=== PATIENT | male | born 1980 | race American Indian/Alaskan Native ===

== ENCOUNTER 2016-08-12 10:22 | Inpatient (IN) | payer BC ==
[2016-08-12] MEDS ORDERED: TYLENOL ONE (11:38)
[2016-08-12] MEDS ORDERED: TYLENOL PO ONE (11:44)
[2016-08-12] MEDS ORDERED: NACL 0.9% 1000 ML 1,000 ML IV ONE ×2 (11:53→13:03)
[2016-08-12] MEDS ORDERED: ROBITUSSIN ONE (12:01)
--- NOTE | 2016-08-12 12:24 | Emergency Department Report ---
ED General Adult HPI - General Chief complaint: Fever Stated complaint: COLD SYMPTOMS Time Seen by Provider: 08/12/16 11:45 Source: patient, family Mode of arrival: Wheelchair Limitations: No Limitations - History of Present Illness Initial comments: PT c/o of "not feeling well" PT states he received influenza vaccine in FEB and PNA vaccine in May. PT states that since May, he has had intermittent cough. 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 PT states that yesterday, he felt worse, had hot and cold flashes and he had to have his pick him up from work. PT states this morning, while in the shower, he got dizzy and slid to the ground. PT denies chi, syncope, or collapse. PT states he had to have his bath him. Pt's reports that pt has been shaking. MD Complaint: "not feeling well" Onset/Timin -: Gradual, days(s) Location: head, chest, back, abdomen Severity scale (0 -10): 10 Quality: aching Consistency: constant Improves with: medication (Robitussion last night ) Worsens with: movement, other (shower ) Associated Symptoms: chest pain, cough, fever/chills, headaches, loss of appetite, malaise, weakness. denies: nausea/vomiting, syncope Treatments Prior to Arrival: other (Robittusin last night ) - Related Data Previous Rx's Medication Instructions Recorded Last Taken Type Cyclobenzaprine HCl [FLEXERIL] 10 mg PO Q4-6H PRN #12 tablet 05/05/13 Unknown Rx Hydrocodone Bit/Acetaminophen 1 each PO Q4-6H PRN #12 tablet 05/05/13 Unknown Rx [Lortab 5-500 Tablet] Ibuprofen [Motrin] 800 mg PO TID PRN #30 tablet 05/05/13 Unknown Rx Allergies Allergy/AdvReac Type Severity Reaction Status Date / Time No Known Allergies Allergy Verified 08/12/16 11:13 ED Review of Systems ROS: Stated complaint: COLD SYMPTOMS Other details as noted in HPI Comment: All other systems reviewed and negative Constitutional: chills, fever, malaise, weakness (generalized ) ENT: throat pain, congestion Respiratory: cough, shortness of breath, wheezing Cardiovascular: chest pain. denies: edema Gastrointestinal: abdominal pain. denies: nausea, vomiting Genitourinary: dysuria, hematuria (possible, darker urine) Musculoskeletal: back pain Neurological: headache, weakness (generalized ) ED Past Medical Hx - Past Medical History Previous Medical History?: Yes Hx Hypertension: Yes Hx Diabetes: Yes - Surgical History Past Surgical History?: No - Social History Smoking Status: Never Smoker Substance Use Type: None - Medications Home Medications: Home Medications Medication Instructions Recorded Confirmed Last Taken Type Cyclobenzaprine HCl [FLEXERIL] 10 mg PO Q4-6H PRN #12 tablet 05/05/13 Unknown Rx Hydrocodone Bit/Acetaminophen 1 each PO Q4-6H PRN #12 tablet 05/05/13 Unknown Rx [Lortab 5-500 Tablet] Ibuprofen [Motrin] 800 mg PO TID PRN #30 tablet 05/05/13 Unknown Rx ED Physical Exam - General Limitations: No Limitations General appearance: alert, in no apparent distress - Head Head exam: Present: atraumatic, normocephalic, normal inspection - Eye Eye exam: Present: normal appearance, PERRL. Absent: conjunctival injection - ENT ENT exam: Present: mucous membranes moist, other (cerumen jensen - obstructs visualization of TMs) - Expanded ENT Exam Expanded Mouth exam: Present: tongue normal. Absent: drooling, trismus Throat exam: Positive: normal inspection, other (clear post nasal drainage ). Negative: tonsillar exudate - Neck Neck exam: Present: normal inspection, full ROM. Absent: tenderness - Respiratory Respiratory exam: Present: other (diminished jensen - coughing during exam ). Absent: respiratory distress, wheezes, rhonchi - Cardiovascular Cardiovascular Exam: Present: normal rhythm, tachycardia - GI/Abdominal GI/Abdominal exam: Present: soft, normal bowel sounds. Absent: tenderness - Extremities Exam Extremities exam: Present: normal inspection, full ROM, normal capillary refill - Back Exam Back exam: Present: normal inspection, tenderness (to jensen lumbar paraspinal muscles ). Absent: CVA tenderness (R), CVA tenderness (L), vertebral tenderness - Neurological Exam Neurological exam: Present: alert, oriented X3 - Psychiatric Psychiatric exam: Present: normal affect, normal mood - Skin Skin exam: Present: warm, dry, intact ED Course Vital Signs 08/12/16 08/12/16 08/12/16 11:09 13:18 13:29 Temperature 101.1 F H Pulse Rate 119 H Pulse Rate [ 97 H 103 H Anterior Bilateral Throughout] Respiratory 16 Rate Respiratory 18 18 Rate [Anterior Bilateral Throughout] Blood Pressure 127/77 O2 Sat by Pulse 97 Oximetry - Reevaluation(s) Reevaluation #1: 08/12/16 12:28 PT's fever was treated by RN with Tylenol 975mg. PT aware of plan of care. Reevaluation #2: 08/12/16 12:58 PT aware of XR results. Reevaluation #3: 08/12/16 14:11 PT states he is feeling better. PT aware of plan to admit and agrees. Dr Baig aware of pt and agrees with plan of care. - Consultations Consultation #1: 08/12/16 14:42 Dr Bernal to admit. - Pulse Oximetry Interpretation Digit-Finger Initial Pulse Oximetry Readin Actions Taken: none ED Medical Decision Making - Lab Data Result diagrams: 08/12/16 12:38 08/12/16 12:38 - EKG Data -: EKG Interpreted by Me EKG shows normal: sinus rhythm Rate: tachycardia - Radiology Data Radiology results: report reviewed CXR:R middle lobe PNA Critical care attestation.: If time is entered above; I have spent that time in minutes in the direct care of this critically ill patient, excluding procedure time. ED Disposition Clinical Impression: Right middle lobe pneumonia Qualifiers: Pneumonia type: due to unspecified organism Qualified Code(s): J18.9 - Pneumonia, unspecified organism Disposition: OP ADMITTED IP TO THIS HOSP Is pt being admited?: Yes Does the pt Need Aspirin: No Condition: Stable Instructions: Bacterial Pneumonia (ED) Referrals: JENNIFER DOMINIQUE MD [Primary Care Provider] - 3-5 Days Time of Disposition: 14:42
[2016-08-12] MEDS ORDERED: ROBITUSSIN AC PO ONE (12:30)
--- NOTE | 2016-08-12 12:35 | XRay Report ---
PA and lateral chest: The pulmonary infiltrate in the right middle lobe. Lungs otherwise appear generally clear. The heart is normal in size and is no vascular congestion. No prior study for comparison. Impression: Right middle lobe pneumonia.
[2016-08-12 12:47] LABS: Basophils % (Auto) 0.2 % (0.0-1.8); Hemoglobin 11.1 gm/dl (11.8-15.2); Mean Corpuscular HGB Conc 33 % (32-34); Mean Corpuscular Hemoglobin 26 pg (28-32); Mean Corpuscular Volume 81 fl (84-94); Platelet Count 153 K/mm3 (140-440); Red Blood Count 4.19 M/mm3 (3.65-5.03); Red Cell Distribution Width 13.2 % (13.2-15.2); White Blood Count 19.4 K/mm3 (4.5-11.0)
[2016-08-12 12:59] LABS: Lipase 10 units/L (13-60)
[2016-08-12 13:04] LABS: Alanine Aminotransferase 12 units/L (7-56); Albumin 2.8 g/dL (3.9-5); Albumin/Globulin Ratio 0.9 %; Alkaline Phosphatase 94 units/L (35-129); Anion Gap 14 mmol/L; BUN/Creatinine Ratio 11.42; Blood Urea Nitrogen 8 mg/dL (9-20); Calcium 8.1 mg/dL (8.4-10.2); Carbon Dioxide 24 mmol/L (22-30); Chloride 100.2 mmol/L (98-107); Glucose 226 mg/dL (75-100); Potassium 3.5 mmol/L (3.6-5.0); Sodium 135 mmol/L (137-145)
[2016-08-12] MEDS ORDERED: DUONEB 0.5 MG-3 MG/3 ML SOLN IH ONE (13:05)
[2016-08-12 13:21] LABS: Bilirubin,Urine NEG (Negative); Blood,Urine NEG (Negative); Ketones,Urine 20 mg/dL (Negative); Leukocyte Esterase,Urine NEG (Negative); Mucus,Urine FEW /HPF; Nitrite,Urine NEG (Negative)
--- NOTE | 2016-08-12 13:43 | Admit Criteria Form ---
Admission Criteria Documentation: PNEUMONIA, COMMUNITY ACQUIRED Clinical Indications for Admission to Inpatient Care ( Place 'X' for any and all applicable criteria): Admission is indicated for ANY ONE of the following (1)(2)(3): [ ]I. Hypoxemia indicated by ANY ONE of the following: [ ]a) Oxygen saturation less than 90% while breathing room air [ ]b) PO2 less than 60 mm Hg (8.0 kPa) while breathing room air [ ]c) Chronic lung disease with significant deterioration from baseline oxygenation [X]II. Appropriate diagnostic testing and treatment unavailable in outpatient or recovery facility (eg,testing or infection control measures unavailable(10) [ ]III. Moderate-risk or high-risk category patients (Pneumonia Severity Index (PSI) class IV or V, or CURB-65 score of 3 or greater). [ ]IV. Outpatient treatment failure as indicated by ANY ONE of the following(9) : [ ]a) Failure to respond to antibiotic (eg, resistant organism) [ ]b) Clinically significant adverse effects from medication (eg, vomiting) [ ]c) Complications of pneumonia (eg, empyema, bacteremia) [ ]d) Significant worsening of comorbid cond necessitating inpatient care (eg, chronic heart failure) [ ]V. Intermediate-risk category patients (eg, PSI class III or CURB-65 score 2) who do not improve with initial therapy and observation. [ ]. Immunocompromised patients (eg, AIDS, chronic steroid use) at moderate or high risk based on clinical evaluation. [ ]VII. Complicated pleural effusions (eg, exudative, loculated) [ ]VIII.Hemodynamic instability [ ] IX. Altered mental status that is severe or persistent. [ ]X. Dehydration that is severe or persistent. [ ]XI. Bacteremia [ ]XII. Respiratory finding (eg. tachypnea) that do not respond to outpatient or observation care treatment Extended stay beyond goal length of stay may be needed for (20) [ ]a) Unclear diagnosis [ ]b) Pleural disease [ ]c) Severe pneumonia or treatment failure (25 [ ]d) Respiratory failure (anticipate invasive or noninvasive ventilatory support) [ ]e) Abnormal serum electrolytes (serum Na concentration less than 135 mEq/L (mmol/L) (32)(33) [ ]f) Clinically significant comorbid illness (eg, heart failure, atrial fibrillation with rapid heart rate, alcohol withdrawal, renal insufficiency)(34)(35) [ ]g) Comorbid acute exacerbation of COPD(36) [ ]h) Concomitant diagnosis of malignancy that may be associated with malnutrition, immunologic impairment, or bronchial obstruction. [ ]i) Concomitant altered mental status [ ]j) Culture-identified Gram-negative or antibiotic-resistant organism (eg, Pseudomonas, methicillin-resistant Staphylococcus aureus)(30) [ ]k) Healthcare-associated pneumonia The original [employer] content created by [employer] has been revised. The portions of the content which have been revised are identified through the use of italic text or in bold, and [facility] has neither reviewed nor approved the modified material. All other unmodified content is copyright [employer]. Please see references footnoted in the original [facility] edition 2016 Admission Criteria Met: Yes
[2016-08-12] MEDS ORDERED: LEVAQUIN 750MG/150ML 750 MG/150 ML BAG IV ONE (14:08)
[2016-08-12] MEDS ORDERED: ZOSYN/NS 4.5GM/100ML 4.5 GM/100 ML VIAL IV ONE (14:08)
[2016-08-12] MEDS ORDERED: DILAUDID IV PRN (15:38)
[2016-08-12] MEDS ORDERED: DULCOLAX PR PRN (15:38)
[2016-08-12] MEDS ORDERED: ZOFRAN IV PRN (15:38)
[2016-08-12] MEDS ORDERED: MILK OF MAGNESIA PO PRN (15:38)
[2016-08-12] MEDS ORDERED: TYLENOL PO PRN (15:38)
[2016-08-12] MEDS ORDERED: FLEXERIL PO PRN (15:41)
[2016-08-12] MEDS ORDERED: NON-FORMULARY (Hydrocodone Bit/Acetaminophen [Lortab 5-500 Tablet] 1 EACH) PO PRN (15:41)
[2016-08-12] MEDS ORDERED: NACL 0.45% 1000 ML 1,000 ML IV SCH (16:00)
[2016-08-12] MEDS ORDERED: NORCO 5/325 PO PRN (16:00)
[2016-08-12] MEDS: ZOSYN/NS 4.5GM/100ML 4.5 GM/100 ML VIAL IV SCH (16:58)
[2016-08-12] MEDS: MOTRIN PO PRN (21:01)
[2016-08-13] MEDS: ZOSYN/NS 4.5GM/100ML 4.5 GM/100 ML VIAL IV SCH ×3 (00:27→18:10)
[2016-08-13 08:06] LABS: Basophils % (Auto) 0.2 % (0.0-1.8); Eosinophils % (Auto) 0.9 % (0.0-4.3); Hematocrit 36.8 % (35.5-45.6); Mean Corpuscular HGB Conc 33 % (32-34); Mean Corpuscular Hemoglobin 26 pg (28-32); Mean Corpuscular Volume 81 fl (84-94); Platelet Count 155 K/mm3 (140-440); Red Blood Count 4.55 M/mm3 (3.65-5.03); Red Cell Distribution Width 13.7 % (13.2-15.2)
[2016-08-13 08:27] LABS: Alanine Aminotransferase 11 units/L (7-56); Albumin 2.7 g/dL (3.9-5); Albumin/Globulin Ratio 0.8 %; Alkaline Phosphatase 95 units/L (35-129); Anion Gap 14 mmol/L; Bilirubin,Total 0.7 mg/dL (0.1-1.2); Blood Urea Nitrogen 7 mg/dL (9-20); Calcium 8.1 mg/dL (8.4-10.2); Carbon Dioxide 25 mmol/L (22-30); Glucose 186 mg/dL (75-100); Potassium 3.4 mmol/L (3.6-5.0); Sodium 137 mmol/L (137-145); Total Protein 6.2 g/dL (6.3-8.2)
[2016-08-13] MEDS: LOVENOX SUB-Q SCH (09:58)
--- NOTE | 2016-08-13 11:24 | Progress Note ---
Assessment and Plan Assessment and plan: 1. Sepsis. Present on admission. Patient meets criteria with tachycardia, fever, leukocytosis and diagnosis of pneumonia. Patient will be placed on the sepsis pathway continued on IV antibiotics. Continue to follow blood cultures and trend lactic acid levels. 2. Community-acquired pneumonia. Continue antibiotics and follow-up cultures and chest x-ray. 3. Hypokalemia. Replete potassium. 4. Hypertension. Resume antihypertensive medications. History Interval history: 36-year-old male admitted with diagnosis of right lower lobe pneumonia. No new issues overnight. Patient complains of cough. Hospitalist Physical - Constitutional Vitals: Temp Pulse Resp BP Pulse Ox 97.9 F 84 20 120/72 96 08/13/16 08:25 08/13/16 08:25 08/13/16 08:25 08/13/16 08:25 08/13/16 08:25 General appearance: Present: no acute distress, well-nourished - EENT Eyes: Present: PERRL, EOM intact ENT: hearing intact, clear oral mucosa, dentition normal - Neck Neck: Present: supple, normal ROM - Respiratory Respiratory effort: normal Respiratory: right: rhonchi, bilateral: diminished - Cardiovascular Rhythm: regular Heart Sounds: Present: S1 & S2. Absent: gallop, rub - Extremities Extremities: no ischemia, No edema, Full ROM - Abdominal General gastrointestinal: soft, non-tender, non-distended, normal bowel sounds - Integumentary Integumentary: Present: clear, warm, dry - Neurologic Neurologic: CNII-XII intact, moves all extremities Results - Labs CBC & Chem 7: 08/13/16 07:37 08/13/16 07:37 Labs: Laboratory Last Values WBC 15.0 K/mm3 (4.5-11.0) H 08/13/16 07:37 RBC 4.55 M/mm3 (3.65-5.03) 08/13/16 07:37 Hgb 12.0 gm/dl (11.8-15.2) 08/13/16 07:37 Hct 36.8 % (35.5-45.6) 08/13/16 07:37 MCV 81 fl (84-94) L 08/13/16 07:37 MCH 26 pg (28-32) L 08/13/16 07:37 MCHC 33 % (32-34) 08/13/16 07:37 RDW 13.7 % (13.2-15.2) 08/13/16 07:37 Plt Count 155 K/mm3 (140-440) 08/13/16 07:37 Lymph % (Auto) 11.0 % (13.4-35.0) L 08/13/16 07:37 [place] % (Auto) 8.3 % (0.0-7.3) H 08/13/16 07:37 Eos % (Auto) 0.9 % (0.0-4.3) 08/13/16 07:37 Baso % (Auto) 0.2 % (0.0-1.8) 08/13/16 07:37 Lymph # 1.7 K/mm3 (1.2-5.4) 08/13/16 07:37 [place] # 1.2 K/mm3 (0.0-0.8) H 08/13/16 07:37 Eos # 0.1 K/mm3 (0.0-0.4) 08/13/16 07:37 Baso # 0.0 K/mm3 (0.0-0.1) 08/13/16 07:37 Seg Neutrophils % 79.6 % (40.0-70.0) H 08/13/16 07:37 Seg Neutrophils # 11.9 K/mm3 (1.8-7.7) H 08/13/16 07:37 Sodium 137 mmol/L (137-145) 08/13/16 07:37 Potassium 3.4 mmol/L (3.6-5.0) L 08/13/16 07:37 Chloride 101.0 mmol/L (98-107) 08/13/16 07:37 Carbon Dioxide 25 mmol/L (22-30) 08/13/16 07:37 Anion Gap 14 mmol/L 08/13/16 07:37 BUN 7 mg/dL (9-20) L 08/13/16 07:37 Creatinine 0.7 mg/dL (0.8-1.5) L 08/13/16 07:37 Estimated GFR > 60 ml/min 08/13/16 07:37 BUN/Creatinine Ratio 10.00 % 08/13/16 07:37 Glucose 186 mg/dL (75-100) H 08/13/16 07:37 POC Glucose 193 (70-105) H 08/13/16 06:48 Hemoglobin A1c 11.0 % (4-6) H 08/12/16 12:38 Lactic Acid 1.5 mmol/L (0.7-2.0) 08/12/16 13:31 Calcium 8.1 mg/dL (8.4-10.2) L 08/13/16 07:37 Total Bilirubin 0.7 mg/dL (0.1-1.2) 08/13/16 07:37 AST 12 units/L (5-40) 08/13/16 07:37 ALT 11 units/L (7-56) 08/13/16 07:37 Alkaline Phosphatase 95 units/L (35-129) 08/13/16 07:37 Troponin T < 0.010 ng/mL (0.00-0.029) 08/12/16 12:38 Total Protein 6.2 g/dL (6.3-8.2) L 08/13/16 07:37 Albumin 2.7 g/dL (3.9-5) L 08/13/16 07:37 Albumin/Globulin Ratio 0.8 % 08/13/16 07:37 Lipase 10 units/L (13-60) L 08/12/16 12:38 Urine Color Yellow (Yellow) 08/12/16 13:00 Urine Turbidity Clear (Clear) 08/12/16 13:00 Urine pH 7.0 (5.0-7.0) 08/12/16 13:00 Ur Specific [place] 1.021 (1.003-1.030) 08/12/16 13:00 Urine Protein 100 mg/dl mg/dL (Negative) 08/12/16 13:00 Urine Glucose (UA) 150 mg/dL (Negative) 08/12/16 13:00 Urine Ketones 20 mg/dL (Negative) 08/12/16 13:00 Urine Blood Neg (Negative) 08/12/16 13:00 Urine Nitrite Neg (Negative) 08/12/16 13:00 Urine Bilirubin Neg (Negative) 08/12/16 13:00 Urine Urobilinogen 2.0 mg/dL (<2.0) 08/12/16 13:00 Ur Leukocyte Esterase Neg (Negative) 08/12/16 13:00 Urine WBC (Auto) 9.0 /HPF (0.0-6.0) H 08/12/16 13:00 Urine RBC (Auto) 4.0 /HPF (0.0-6.0) 08/12/16 13:00 Urine Mucus Few /HPF 08/12/16 13:00
--- NOTE | 2016-08-13 15:42 | Event Note ---
Date: 08/12/16 See H/p in reports [facility] Pneumonia
[2016-08-13] MEDS ORDERED: EXENATIDE MICROSPHERES 2 MG SQ SCH (16:00)
--- NOTE | 2016-08-13 18:59 | History and Physical Report ---
CHIEF COMPLAINT: Fever and chills for 2 days. HISTORY OF PRESENT ILLNESS: A 36-year-old -[place] male, works for [employer], comes in for fever, chills and cough of 2 days' duration. The patient has been having intermittent cough, which is nonproductive. Also, right-sided chest pain on deep inspiration. He felt dizzy today. No syncope, no collapse. Generalized body aches present. The patient had pneumonia vaccination and flu vaccine in May. Pain in the right infra-axillary region is about 5 on a scale of 1-10, more on deep inspiration. CURRENT MEDICATIONS: [place] 5/325 q.4 p.r.n. and Flexeril 10 mg q.6 p.r.n. ALLERGIES: None. PAST MEDICAL HISTORY: Significant for hypertension and diabetes. PAST SURGICAL HISTORY: None. SOCIAL HISTORY: Does not smoke. No alcohol, no recreational drugs. REVIEW OF SYSTEMS: CONSTITUTIONAL: Fever present. Body aches present. No weight loss, no weight gain. HEENT: No sore throat, no post nasal drip. No tonsillar exudate. NECK: Supple. No neck pain. CARDIOVASCULAR: No chest pain, no palpitations, except the right-sided chest pain. RESPIRATORY: Right-sided chest pain on deep inspiration present. Dry cough present. Fever present. No sputum. GASTROINTESTINAL: No abdominal pain, no nausea, no vomiting, no diarrhea. No constipation. GENITOURINARY: No dysuria, no flank pain. MUSCULOSKELETAL: Bodyaches all over. CENTRAL NERVOUS SYSTEM: No syncope, no seizures. SKIN: No rashes. PSYCHIATRIC: No depression. No anxiety. HEMATOLOGIC AND LYMPHATIC: No bruising or bleeding. A 14-point review of systems done essentially negative other than fever and chills and right calf and right-sided infra-axillary pain. PHYSICAL EXAMINATION: GENERAL: On examination, young male, cooperative during examination. VITAL SIGNS: Temperature 101.5, pulse is 119, respirations 16, and blood pressure 127/77. HEENT: Unremarkable. Pupils are equal and reactive. Posterior pharynx is normal. NECK: Supple, no lymphadenopathy, no thyromegaly. LUNGS: Scattered rales in the right infrascapular and infra-axillary region. Good air entry. CARDIOVASCULAR: S1, S2 heard. No gallop, no murmur, no rub. Apical impulse in left fifth intercostal space and midclavicular line. ABDOMEN: Soft and benign. No hepatosplenomegaly. No guarding, no rigidity. Hernial orifices are normal. EXTREMITIES: Good pedal pulses. No pedal edema. CENTRAL NERVOUS SYSTEM: Alert and oriented x 4, nonfocal exam. LABORATORY DATA: White count is 19,400, H and H are 11.1 and 34.0, and platelet count is 153,000. Sodium is 135, potassium is 3.5, BUN and creatinine are 8 and 0.7, glucose is 226, chloride is 100, bicarbonate is 24. Chest x-ray shows right lower lobe pneumonia. No significant infiltrate present. ASSESSMENT AND PLAN: 1. Right lower lobe pneumonia. The patient was started on IV Levaquin, which was changed to IV Zosyn 4.5 because of ____ and because of the patient's exposure to many halfway and mesh , stopped the Levaquin; also IV fluids. 2. ____. The patient on Bydureon, continue the Bydureon. The patient can take his own medication, also Accu-Chek a.c. and at bedtime and coverage and check hemoglobin A1c. In the meantime, continue Bydureon and metformin. 3. Hypertension. Continue losartan 50 mg daily. 4. Deep venous thrombosis prophylaxis, Lovenox 40 units subq daily. PROGNOSIS: Fair. Probable discharge in 2 to 3 days on oral antibiotics. JOB# [id number] VSM/NTS
[2016-08-14] MEDS: ZOSYN/NS 4.5GM/100ML 4.5 GM/100 ML VIAL IV SCH ×3 (04:16→20:38)
[2016-08-14 06:00] LABS: Basophils % (Auto) 0.2 % (0.0-1.8); Eosinophils % (Auto) 1.9 % (0.0-4.3); Hematocrit 35.8 % (35.5-45.6); Hemoglobin 11.8 gm/dl (11.8-15.2); Mean Corpuscular HGB Conc 33 % (32-34); Mean Corpuscular Hemoglobin 27 pg (28-32); Mean Corpuscular Volume 81 fl (84-94); Platelet Count 179 K/mm3 (140-440); Red Blood Count 4.44 M/mm3 (3.65-5.03); Red Cell Distribution Width 13.6 % (13.2-15.2); White Blood Count 9.5 K/mm3 (4.5-11.0)
[2016-08-14 06:18] LABS: Anion Gap 15 mmol/L; Blood Urea Nitrogen 6 mg/dL (9-20); Calcium 8.2 mg/dL (8.4-10.2); Carbon Dioxide 25 mmol/L (22-30); Chloride 99.9 mmol/L (98-107); Glucose 236 mg/dL (75-100); Potassium 3.5 mmol/L (3.6-5.0); Sodium 136 mmol/L (137-145)
--- NOTE | 2016-08-14 10:16 | Progress Note ---
Assessment and Plan Assessment and plan: 1. Sepsis. Present on admission. Continue on IV antibiotics. Continue to follow blood cultures and trend lactic acid levels. 2. Community-acquired pneumonia. Continue antibiotics and follow-up cultures and chest x-ray. 3. Hypokalemia. Replete potassium as needed. 4. Hypertension. Resume antihypertensive medications. History Interval history: 36-year-old male admitted with diagnosis of right lower lobe pneumonia. No new issues overnight. Patient still complains of cough. Hospitalist Physical - Constitutional Vitals: Temp Pulse Resp BP Pulse Ox 98.0 F 82 18 134/85 97 08/14/16 08:10 08/14/16 08:10 08/14/16 08:10 08/14/16 08:10 08/14/16 08:10 General appearance: Present: no acute distress, well-nourished - EENT Eyes: Present: PERRL, EOM intact ENT: hearing intact, clear oral mucosa, dentition normal - Neck Neck: Present: supple, normal ROM - Respiratory Respiratory effort: normal Respiratory: bilateral: diminished, rhonchi - Cardiovascular Rhythm: regular Heart Sounds: Present: S1 & S2. Absent: gallop, rub - Extremities Extremities: no ischemia, No edema, Full ROM - Abdominal General gastrointestinal: soft, non-tender, non-distended, normal bowel sounds - Integumentary Integumentary: Present: clear, warm, dry - Neurologic Neurologic: CNII-XII intact, moves all extremities Results - Labs CBC & Chem 7: 08/14/16 05:11 08/14/16 05:11 Labs: Laboratory Last Values WBC 9.5 K/mm3 (4.5-11.0) 08/14/16 05:11 RBC 4.44 M/mm3 (3.65-5.03) 08/14/16 05:11 Hgb 11.8 gm/dl (11.8-15.2) 08/14/16 05:11 Hct 35.8 % (35.5-45.6) 08/14/16 05:11 MCV 81 fl (84-94) L 08/14/16 05:11 MCH 27 pg (28-32) L 08/14/16 05:11 MCHC 33 % (32-34) 08/14/16 05:11 RDW 13.6 % (13.2-15.2) 08/14/16 05:11 Plt Count 179 K/mm3 (140-440) 08/14/16 05:11 Lymph % (Auto) 21.5 % (13.4-35.0) 08/14/16 05:11 [place] % (Auto) 12.7 % (0.0-7.3) H 08/14/16 05:11 Eos % (Auto) 1.9 % (0.0-4.3) 08/14/16 05:11 Baso % (Auto) 0.2 % (0.0-1.8) 08/14/16 05:11 Lymph # 2.0 K/mm3 (1.2-5.4) 08/14/16 05:11 [place] # 1.2 K/mm3 (0.0-0.8) H 08/14/16 05:11 Eos # 0.2 K/mm3 (0.0-0.4) 08/14/16 05:11 Baso # 0.0 K/mm3 (0.0-0.1) 08/14/16 05:11 Seg Neutrophils % 63.7 % (40.0-70.0) 08/14/16 05:11 Seg Neutrophils # 6.0 K/mm3 (1.8-7.7) 08/14/16 05:11 Sodium 136 mmol/L (137-145) L 08/14/16 05:11 Potassium 3.5 mmol/L (3.6-5.0) L 08/14/16 05:11 Chloride 99.9 mmol/L (98-107) 08/14/16 05:11 Carbon Dioxide 25 mmol/L (22-30) 08/14/16 05:11 Anion Gap 15 mmol/L 08/14/16 05:11 BUN 6 mg/dL (9-20) L 08/14/16 05:11 Creatinine 0.8 mg/dL (0.8-1.5) 08/14/16 05:11 Estimated GFR > 60 ml/min 08/14/16 05:11 BUN/Creatinine Ratio 7.50 % 08/14/16 05:11 Glucose 236 mg/dL (75-100) H 08/14/16 05:11 POC Glucose 193 (70-105) H 08/13/16 06:48 Hemoglobin A1c 11.0 % (4-6) H 08/12/16 12:38 Lactic Acid 1.6 mmol/L (0.7-2.0) 08/13/16 14:41 Calcium 8.2 mg/dL (8.4-10.2) L 08/14/16 05:11 Total Bilirubin 0.7 mg/dL (0.1-1.2) 08/13/16 07:37 AST 12 units/L (5-40) 08/13/16 07:37 ALT 11 units/L (7-56) 08/13/16 07:37 Alkaline Phosphatase 95 units/L (35-129) 08/13/16 07:37 Troponin T < 0.010 ng/mL (0.00-0.029) 08/12/16 12:38 Total Protein 6.2 g/dL (6.3-8.2) L 08/13/16 07:37 Albumin 2.7 g/dL (3.9-5) L 08/13/16 07:37 Albumin/Globulin Ratio 0.8 % 08/13/16 07:37 Lipase 10 units/L (13-60) L 08/12/16 12:38 Urine Color Yellow (Yellow) 08/12/16 13:00 Urine Turbidity Clear (Clear) 08/12/16 13:00 Urine pH 7.0 (5.0-7.0) 08/12/16 13:00 Ur Specific [place] 1.021 (1.003-1.030) 08/12/16 13:00 Urine Protein 100 mg/dl mg/dL (Negative) 08/12/16 13:00 Urine Glucose (UA) 150 mg/dL (Negative) 08/12/16 13:00 Urine Ketones 20 mg/dL (Negative) 08/12/16 13:00 Urine Blood Neg (Negative) 08/12/16 13:00 Urine Nitrite Neg (Negative) 08/12/16 13:00 Urine Bilirubin Neg (Negative) 08/12/16 13:00 Urine Urobilinogen 2.0 mg/dL (<2.0) 08/12/16 13:00 Ur Leukocyte Esterase Neg (Negative) 08/12/16 13:00 Urine WBC (Auto) 9.0 /HPF (0.0-6.0) H 08/12/16 13:00 Urine RBC (Auto) 4.0 /HPF (0.0-6.0) 08/12/16 13:00 Urine Mucus Few /HPF 08/12/16 13:00
[2016-08-14] MEDS: LOVENOX SUB-Q SCH (10:58)
[2016-08-14] MEDS: MOTRIN PO PRN (23:55)
[2016-08-15] MEDS: ZOSYN/NS 4.5GM/100ML 4.5 GM/100 ML VIAL IV SCH (05:02)
[2016-08-15 08:13] VITALS: BP 140/93
--- NOTE | 2016-08-15 10:27 | Discharge Summary ---
Providers - Providers Date of Admission: 08/12/16 15:38 Date of discharge: 08/15/16 Attending physician: LUCIA SOTELO Primary care physician: JENNIFER DOMINIQUE Hospitalization Reason for admission: PNA Condition: Stable Hospital course: 36-year-old male who presents to the emergency department and was admitted with diagnosis of right lower lobe pneumonia and sepsis. Patient was placed on the pneumonia and sepsis pathway and treated with IV antibiotics. Initial white count was 19.4 and normalized at the time of discharge of 9.5. Lactic acid level was found to be normal and urinalysis revealed minimal white cells. Patient has significant improvement throughout hospitalization and was felt to have received maximal hospital benefit for discharge. Dedicated discharge time 31 minutes. Disposition: DISCHARGED TO HOME OR SELFCARE Time spent for discharge: 31 - Discharge Diagnoses (1) Sepsis Status: Acute Qualifiers: Sepsis type: S (2) Right middle lobe pneumonia Status: Acute Qualifiers: Pneumonia type: due to unspecified organism Aspiration pneumonia type: A Qualified Code(s): J18.9 - Pneumonia, unspecified organism Core Measure Documentation - Palliative Care Palliative Care/ Comfort Measures: Not Applicable - Core Measures Any of the following diagnoses?: none Exam - Constitutional Vitals: Temp Pulse Resp BP Pulse Ox 97.9 F 72 16 140/93 100 08/15/16 07:00 08/15/16 07:00 08/15/16 07:00 08/15/16 07:00 08/15/16 07:00 General appearance: Present: no acute distress, well-nourished - EENT Eyes: Present: PERRL ENT: hearing intact, clear oral mucosa - Neck Neck: Present: supple, normal ROM - Respiratory Respiratory effort: normal Respiratory: bilateral: CTA - Cardiovascular Heart Sounds: Present: S1 & S2. Absent: rub, click - Extremities Extremities: pulses symmetrical, No edema Peripheral Pulses: within normal limits - Abdominal General gastrointestinal: Present: soft, non-tender, non-distended, normal bowel sounds Male genitourinary: Present: normal - Integumentary Integumentary: Present: clear, warm, dry - Musculoskeletal Musculoskeletal: gait normal, strength equal bilaterally - Psychiatric Psychiatric: appropriate mood/affect, intact judgment & insight - Neurologic Neurologic: CNII-XII intact, moves all extremities Plan Activity: no restrictions Weight Bearing Status: Full Weight Bearing Diet: regular Follow up with: JENNIFER DOMINIQUE MD [Primary Care Provider] - 3-5 Days Prescriptions: Amoxicillin/K Clav Tab [Augmentin 875 mg] 1 tab PO Q12HR #14 tab HYDROcodone/APAP 5-325 [[place] 5-325 mg TAB] 1 each PO Q4H PRN #15 tablet PRN Reason: Pain
[2016-08-15] MEDS: LOVENOX SUB-Q SCH (11:01)
== END 2016-08-15 13:23 | disposition home or self-care (01) | DRG 871 ==
LOC: ED 10:22 → 3A 15:38
PROVIDERS: ADMIT Internal Medicine; ATTEND Hospitalist
PROC: 4A033R1 Measurement of Arterial Saturation, Peripheral, Percutaneous Approach (ICD-10-PCS; principal; 2016-08-12)
DX: A41.9 Sepsis, unspecified organism (principal); J18.9 Pneumonia, unspecified organism; E87.6 Hypokalemia; I10 Essential (primary) hypertension; Z79.899 Other long term (current) drug therapy
CPT/HCPCS: 36415; 71020; 80048; 80053; 81001; 82140; 82962; 83036; 83690; 84484; 85025; 87040; 87400; 93005; 93010; 94640; 96361; 96365; J1650; J1956; J2405; J2543; J7030